=== PATIENT | female | born 1980 | race Caucasian/White ===

== ENCOUNTER 2017-06-09 22:29 | Emergency (ER) | payer BC ==
[2017-06-09 22:39] VITALS: RESP 18; TEMP 98.3
[2017-06-09 22:57] VITALS: BP 117/67; PULSE 73; O2SAT 97
== END 2017-06-09 22:50 | disposition home or self-care (01) ==
LOC: ED 22:29
DX: J06.9 Acute upper respiratory infection, unspecified (principal)
CPT/HCPCS: 99282

== ENCOUNTER 2018-12-20 22:44 | Emergency (ER) | payer BC ==
[2018-12-20 23:08] VITALS: BP 152/100; PULSE 108; RESP 18; TEMP 97; O2SAT 100
== END 2018-12-20 23:25 | disposition home or self-care (01) ==
LOC: ED 22:44
DX: S01.511A Laceration without foreign body of lip, initial encounter (principal); W01.0XXA Fall on same level from slipping, tripping and stumbling without subsequent striking against object, initial encounter
CPT/HCPCS: 12011; 99282